=== PATIENT | male | born 1965 | race Caucasian/White ===

== ENCOUNTER 2023-12-27 18:13 | Emergency (ER) | payer OTHER ==
[~2023-12-27] VITALS: Ht 185.4 cm; Wt 79.4 kg
[2023-12-27] MEDS ORDERED: IBUPROFEN 400 MG TABLET ONE (20:07)
[2023-12-27] MEDS: IBUPROFEN 400 MG TABLET PO ONE (20:08)
[2023-12-27] MEDS ORDERED: TYL2T PO (20:55)
[2023-12-27] MEDS ORDERED: IBUP-1957 PO (20:55)
[2023-12-28 00:13] VITALS: BP 144/88; TEMP 98.3; O2SAT 99
== END 2023-12-27 21:07 | disposition home or self-care (01) ==
LOC: ER 18:15
DX: S62.611A Displaced fracture of proximal phalanx of left index finger, initial encounter for closed fracture (principal); S62.607A Fracture of unspecified phalanx of left little finger, initial encounter for closed fracture; W01.0XXA Fall on same level from slipping, tripping and stumbling without subsequent striking against object, initial encounter; Y93.89 Activity, other specified; Y92.89 Other specified places as the place of occurrence of the external cause; Y99.8 Other external cause status
CPT/HCPCS: 73130-TC